=== PATIENT | male | born 1985 | race Caucasian/White ===

== ENCOUNTER 2016-12-25 16:48 | Inpatient (IN) | payer MEDICAID, OTHER ==
[~2016-12-25] VITALS: Ht 182.9 cm; Wt 59.3 kg
[~2016-12-25 16:48] MED LIST: AUGM875T PO; NAPR-576 PO
[2016-12-25 16:52] VITALS: BP 143/94; PULSE 119; RESP 22; TEMP 98.6; O2SAT 96
[2016-12-25] MEDS ORDERED: SODIUM CHLOR 0.9% 1000 ML INJ 1,000 ML IV SCH (16:57)
[2016-12-25] MEDS ORDERED: SODIUM CHLORIDE 0.9% FLUSH 10 ML FLUSH IVF PRN (17:00)
[2016-12-25 17:05] VITALS: RESP 22; O2SAT 96
--- NOTE | 2016-12-25 17:13 | PD ---
HPI . Left leg injury Chief Complaint: Injury Time Seen by Provider: 16:57 Travel History International Travel<30 days: No Contact w/Intl Traveler<30days: No Traveled to known affect area: No History of Present Illness HPI Patient presents by EMS following a left leg injury. Patient reports that he was running and tripped over a stump causing the injury to the leg. EMS was called. They found the patient with an obvious deformity of his left leg. They treated him in route with a splint and with fentanyl, 150 g total in divided dosages. Patient presents complaining with pain rated 8/10. Pain is exacerbated by movement. Pain has been somewhat relieved with the splint and fentanyl. He denies any other associated injuries. PFSH Past Medical History Cancer: No Cardiovascular Problems: No High Cholesterol: No Cerebrovascular Accident: No Diabetes: No Diminished Hearing: No Endocrine: No Genitourinary: Yes Immune Disorder: No Kidney Stones: Yes (HOSPITAL X3) Musculoskeletal: No Neurologic: No Psychiatric: No Reproductive: No Respiratory: No Immunizations Current: Yes Seizures: No Thyroid Disease: No Past Surgical History Other Surgery: No Social History Alcohol Use: Yes (WEEKENDS) Tobacco Use: Yes Substance Use: No (DENIES) Allergies-Medications (Allergen,Severity, Reaction): Coded Allergies: No Known Allergies (Unverified , 12/25/16) Reported Meds & Prescriptions Reported Meds & Active Scripts Active Augmentin 875 mg Tab (Amoxicillin & Pot Clavulanate 875 mg Tab) 875 Mg Tab 875 Mg PO Q12 10 Days Naproxen 500 Mg Tab 500 Mg PO Q12HR PRN Review of Systems Except as stated in HPI: all other systems reviewed are Neg Musculoskeletal: Positive: Limited ROM, Pain Physical Exam Narrative GENERAL: Awake and alert. Speech is a little slurred following the fentanyl. SKIN: Warm and dry. HEAD: Atraumatic. Normocephalic. EYES: Pupils equal and round. NECK: Trachea midline. CARDIOVASCULAR: Regular rate and rhythm. RESPIRATORY: No accessory muscle use. MUSCULOSKELETAL: Obvious deformity of the left lower extremity. The leg is angulated medially. He does have good movement and good pulses distally. NEUROLOGICAL: Awake and alert. No obvious cranial nerve deficits. Motor grossly within normal limits. Normal speech. PSYCHIATRIC: Appropriate mood and affect; insight and judgment normal. Data Data Last Documented VS Vital Signs Date Time Temp Pulse Resp B/P Pulse Ox O2 Delivery O2 Flow Rate FiO2 12/25/16 18:02 99 3.00 12/25/16 18:02 Nasal Cannula 12/25/16 17:05 22 12/25/16 16:52 98.6 119 143/94 Orders Basic Metabolic Panel (Bmp) (12/25/16 16:57) Complete Blood Count With Diff (12/25/16 16:57) Prothrombin Time / Inr (Pt) (12/25/16 16:57) Act Partial Throm Time (Ptt) (12/25/16 16:57) Type And Screen (12/25/16 16:57) Alcohol (Ethanol) (12/25/16 16:57) Urinalysis - C+S If Indicated (12/25/16 16:57) Chest, Single Ap (12/25/16 16:57) Iv Access Insert/Monitor (12/25/16 16:57) Ecg Monitoring (12/25/16 16:57) Oximetry (12/25/16 16:57) Splint Or Brace Apply/Monitor (12/25/16 16:57) Morphine Inj (Morphine Inj) (12/25/16 17:00) Sodium Chlor 0.9% 1000 Ml Inj (Ns 1000 M (12/25/16 16:57) Sodium Chloride 0.9% Flush (Ns Flush) (12/25/16 17:00) Femur (Ap & Lat/2vws) (12/25/16 17:00) Tibia/Fibula (Ap/Lat) (12/25/16 17:00) Propofol 200 Mg/20 Ml Inj (Diprivan 200 (12/25/16 17:15) Knee, Ltd (1 Or 2vws) (12/25/16 ) Splint Post Long Leg Ad Alum (12/25/16 ) Labs Laboratory Tests Test 12/25/16 12/25/16 17:08 17:15 Blood Type AB POSITIVE Antibody Screen NEGATIVE Blood Bank Comment White Blood Count 9.0 TH/MM3 Red Blood Count 4.51 MIL/MM3 Hemoglobin 14.2 GM/DL Hematocrit 41.6 % Mean Corpuscular Volume 92.4 FL Mean Corpuscular Hemoglobin 31.5 PG Mean Corpuscular Hemoglobin 34.1 % Concent Red Cell Distribution Width 13.3 % Platelet Count 330 TH/MM3 Mean Platelet Volume 7.4 FL Neutrophils (%) (Auto) 67.2 % Lymphocytes (%) (Auto) 25.3 % Monocytes (%) (Auto) 6.2 % Eosinophils (%) (Auto) 0.5 % Basophils (%) (Auto) 0.8 % Neutrophils # (Auto) 6.1 TH/MM3 Lymphocytes # (Auto) 2.3 TH/MM3 Monocytes # (Auto) 0.6 TH/MM3 Eosinophils # (Auto) 0.0 TH/MM3 Basophils # (Auto) 0.1 TH/MM3 CBC Comment DIFF FINAL Differential Comment Prothrombin Time 11.7 SEC Prothromb Time International 1.1 RATIO Ratio Activated Partial 25.9 SEC Thromboplast Time Sodium Level 141 MEQ/L Potassium Level 3.4 MEQ/L Chloride Level 101 MEQ/L Carbon Dioxide Level 26.1 MEQ/L Anion Gap 14 MEQ/L Blood Urea Nitrogen 13 MG/DL Creatinine 1.05 MG/DL Estimat Glomerular Filtration 84 ML/MIN Rate Random Glucose 233 MG/DL Calcium Level 9.1 MG/DL Ethyl Alcohol Level 239 MG/DL [facility] Medical Decision Making Medical Screen Exam Complete: Yes Emergency Medical Condition: Yes Differential Diagnosis Differential diagnosis of extremity trauma includes but is not limited to fracture, sprain or strain, dislocation, contusion Narrative Course Patient presents with an obvious fracture of the left leg. The x-ray tech agreed to do a cross table lateral of the knee. You can see that the proximal fibula is fractured. The distal femur is intact. The x-ray tech prefers to wait until after the patient is splinted or doing any further x- rays. The patient wants to wait until his gets here before he is sedated and splinted. CBC & BMP Diagram 12/25/16 17:15 Alcohol level is 239. X-ray to my interpretation show a proximal fibula and distal tibia fracture. They are now well aligned. Procedures Procedure Narrative After the risks and benefits were discussed the following procedure was performed: MODERATE SEDATION: The patient was placed on a cafeteria monitor and pulse oximetry. An ambu bag and suction was immediately available at bedside. The patient was monitored by the nurse and respiratory therapy. Oxygen saturation, heart rate and blood pressure were monitored. Procedural sedation was acheived using propofol . The patient was observed until awake and alert. Procedural Sedation time in attendance was 15 minutes. Physician Communication Physician Communication Dr. Marquis has been paged. Diagnosis Primary Impression: Fracture of left tibia and fibula Qualified Code: S82.202A - Fracture of left tibia and fibula, closed, initial encounter Admitting Information Admitting Physician Requests: Admit Condition: Stable Sujata Parker MD December 25, 2016 17:13
[2016-12-25] MEDS: MORPHINE SULFATE 4 MG/ML INJ IV PRN ×3 (17:14→20:45)
[2016-12-25] MEDS ORDERED: PROPOFOL 200 MG/20 ML AMP IV ONE (17:15)
[2016-12-25 17:31] LABS: AUTOMATED NEUTROPHIL # 6.1 TH/MM3 (1.8-7.7); BASOPHIL # 0.1 TH/MM3 (0-0.2); BASOPHIL % 0.8 % (0.0-2.0); EOSINOPHIL % 0.5 % (0.0-4.0); HEMATOCRIT 41.6 % (39.0-51.0); HEMO FLAGS DIFF FINAL; LYMPH % 25.3 % (9.0-44.0); LYMPHOCYTE # 2.3 TH/MM3 (1.0-4.8); MEAN CELL VOLUME 92.4 FL (80.0-100.0); MEAN CORPUSCULAR HEMOGLOBIN 31.5 PG (27.0-34.0); MEAN CORPUSCULAR HGB CONC 34.1 % (32.0-36.0); MONO % 6.2 % (0.0-8.0); NEUT % 67.2 % (16.0-70.0); PLATELET COUNT 330 TH/MM3 (150-450); RED BLOOD COUNT 4.51 MIL/MM3 (4.50-5.90); RED CELL DISTRIBUTION WIDTH 13.3 % (11.6-17.2)
[2016-12-25 17:46] LABS: APTT (PATIENT) 25.9 SEC (24.3-30.1); INTERNATIONAL NORMALIZED RATIO 1.1 RATIO; PROTHROMBIN TIME - PATIENT 11.7 SEC (9.8-11.6)
--- NOTE | 2016-12-25 17:49 | RADRPT ---
EXAM DATE/TIME: 12/25/2016 17:23 [facility] COMPARISON: No previous studies available for comparison. 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 Complete exams to follow. MEDICAL HISTORY : None. SURGICAL HISTORY : None. ENCOUNTER: Initial ACUITY: 1 day PAIN SCORE: 10/10 LOCATION: Left lower leg FINDINGS: A single lateral view of the left knee is submitted for review. There is no knee joint effusion. Th ere is an acute displaced fracture involving the left proximal fibula. CONCLUSION: Acute displaced fracture involving the left proximal fibula. Devonte Ayala MD on December 25, 2016 at 17:45 Board Certified Radiologist. This report was verified electronically.
[2016-12-25 17:53] LABS: BICARBONATE 26.1 MEQ/L (21.0-32.0); POTASSIUM 3.4 MEQ/L (3.5-5.1)
[2016-12-25 18:02] VITALS: O2SAT 99
--- NOTE | 2016-12-25 18:46 | RADRPT ---
EXAM DATE/TIME: 12/25/2016 17:59 [facility] COMPARISON: No previous studies available for comparison. INDICATIONS : Distal left leg pain post fall. MEDICAL HISTORY : None. SURGICAL HISTORY : None. ENCOUNTER: Initial ACUITY: 1 day PAIN SCORE: 10/10 LOCATION: Left leg FINDINGS: The left femur is intact without fracture or dislocation. There is an acute displaced fracture invol ving the left proximal fibula. CONCLUSION: 1. Acute displaced fracture involving the left proximal fibula. Devonte Ayala MD on December 25, 2016 at 18:40 Board Certified Radiologist. This report was verified electronically.
--- NOTE | 2016-12-25 18:51 | RADRPT ---
EXAM DATE/TIME: 12/25/2016 18:22 [facility] COMPARISON: No previous studies available for comparison. INDICATIONS : Shortness of breath, fall. MEDICAL HISTORY : None. SURGICAL HISTORY : None. ENCOUNTER: Initial ACUITY: 1 day PAIN SCORE: 0/10 LOCATION: Bilateral chest FINDINGS: There is a poor inspiration. There is crowding of the pulmonary vasculature. The heart and mediasti nal structures are unremarkable. Mild scoliosis of the thoracolumbar spine is noted. CONCLUSION: 1. Poor inspiratory result resulting in crowding of the pulmonary vasculature. 2. Mild scoliosis of the thoracolumbar spine. Devonte Ayala MD on December 25, 2016 at 18:45 Board Certified Radiologist. This report was verified electronically.
--- NOTE | 2016-12-25 18:54 | RADRPT ---
EXAM DATE/TIME: 12/25/2016 18:15 [facility] COMPARISON: No previous studies available for comparison. INDICATIONS : Pain and deformity to the left tibia post fall. MEDICAL HISTORY : None. SURGICAL HISTORY : None. ENCOUNTER: Initial ACUITY: 1 day PAIN SCORE: 10/10 LOCATION: Left leg FINDINGS: There are acute displaced fractures involving the left distal tibial shaft and the left proximal fibu lar shaft. CONCLUSION: 1. Acute displaced fractures involving the left distal tibial shaft and the left proximal fibular sh aft. Devonte Ayala MD on December 25, 2016 at 18:50 Board Certified Radiologist. This report was verified electronically.
[2016-12-25 19:00] VITALS: BP 143/83; PULSE 103; RESP 18; TEMP 97.6; O2SAT 96
[2016-12-25 19:20] VITALS: BP 143/86; PULSE 109; RESP 18; O2SAT 95
--- NOTE | 2016-12-25 19:57 | PD ---
Physical Exam Date Seen by Provider: December 25, 2016 Time Seen by Provider: 19:56 Narrative 31-year-old male that presents to the ED for evaluation of left leg injury. I was asked by my attending to speak with Dr. Marquis as well as admit the patient for surgery. Please refer to my attendings note. Data Data Last Documented VS Vital Signs Date Time Temp Pulse Resp B/P Pulse Ox O2 Delivery O2 Flow Rate FiO2 12/25/16 19:20 109 18 143/86 95 Room Air 12/25/16 18:02 3.00 12/25/16 16:52 98.6 Orders Basic Metabolic Panel (Bmp) (12/25/16 16:57) Complete Blood Count With Diff (12/25/16 16:57) Prothrombin Time / Inr (Pt) (12/25/16 16:57) Act Partial Throm Time (Ptt) (12/25/16 16:57) Type And Screen (12/25/16 16:57) Alcohol (Ethanol) (12/25/16 16:57) Urinalysis - C+S If Indicated (12/25/16 16:57) Chest, Single Ap (12/25/16 16:57) Iv Access Insert/Monitor (12/25/16 16:57) Ecg Monitoring (12/25/16 16:57) Oximetry (12/25/16 16:57) Splint Or Brace Apply/Monitor (12/25/16 16:57) Morphine Inj (Morphine Inj) (12/25/16 17:00) Sodium Chlor 0.9% 1000 Ml Inj (Ns 1000 M (12/25/16 16:57) Sodium Chloride 0.9% Flush (Ns Flush) (12/25/16 17:00) Femur (Ap & Lat/2vws) (12/25/16 17:00) Tibia/Fibula (Ap/Lat) (12/25/16 17:00) Propofol 200 Mg/20 Ml Inj (Diprivan 200 (12/25/16 17:15) Knee, Ltd (1 Or 2vws) (12/25/16 ) Splint Post Long Leg Ad Alum (12/25/16 ) Admit Order (Ed Use Only) (12/25/16 19:54) Labs Laboratory Tests Test 12/25/16 12/25/16 17:08 17:15 Blood Type AB POSITIVE Antibody Screen NEGATIVE Blood Bank Comment White Blood Count 9.0 TH/MM3 Red Blood Count 4.51 MIL/MM3 Hemoglobin 14.2 GM/DL Hematocrit 41.6 % Mean Corpuscular Volume 92.4 FL Mean Corpuscular Hemoglobin 31.5 PG Mean Corpuscular Hemoglobin 34.1 % Concent Red Cell Distribution Width 13.3 % Platelet Count 330 TH/MM3 Mean Platelet Volume 7.4 FL Neutrophils (%) (Auto) 67.2 % Lymphocytes (%) (Auto) 25.3 % Monocytes (%) (Auto) 6.2 % Eosinophils (%) (Auto) 0.5 % Basophils (%) (Auto) 0.8 % Neutrophils # (Auto) 6.1 TH/MM3 Lymphocytes # (Auto) 2.3 TH/MM3 Monocytes # (Auto) 0.6 TH/MM3 Eosinophils # (Auto) 0.0 TH/MM3 Basophils # (Auto) 0.1 TH/MM3 CBC Comment DIFF FINAL Differential Comment Prothrombin Time 11.7 SEC Prothromb Time International 1.1 RATIO Ratio Activated Partial 25.9 SEC Thromboplast Time Sodium Level 141 MEQ/L Potassium Level 3.4 MEQ/L Chloride Level 101 MEQ/L Carbon Dioxide Level 26.1 MEQ/L Anion Gap 14 MEQ/L Blood Urea Nitrogen 13 MG/DL Creatinine 1.05 MG/DL Estimat Glomerular Filtration 84 ML/MIN Rate Random Glucose 233 MG/DL Calcium Level 9.1 MG/DL Ethyl Alcohol Level 239 MG/DL [facility] Medical Record Reviewed: Yes Supervised Visit with JOSE: No Differential Diagnosis Fracture versus alcohol intoxication versus normal exam Narrative Course 31-year-old male that presents to the ED for evaluation of left leg injury. Please refer to my attendings note. I spoke with Dr. Marquis over the phone who recommends admission to medicine and nothing by mouth. Likely surgery. Case was discussed with Dr. Madsen who agreed to the admission. Patient was admitted. Diagnosis Primary Impression: Fracture of left tibia and fibula Qualified Code: S82.202A - Fracture of left tibia and fibula, closed, initial encounter Admitting Information Admitting Physician Requests: Observation Condition: Stable Judd Ying December 25, 2016 19:57
[2016-12-25] MEDS ORDERED: ACETAMINOPHEN 325 MG TAB PO PRN (20:00)
[2016-12-25] MEDS ORDERED: LACTULOSE SYRUP 20 GM/30 ML CUP PO PRN (20:00)
[2016-12-25] MEDS ORDERED: SENNOSIDES 8.6 MG TAB PO PRN (20:00)
[2016-12-25] MEDS ORDERED: BISACODYL 10 MG SUPP RECTAL PRN (20:00)
[2016-12-25] MEDS ORDERED: ACETAMINOPHEN/HYDROcodone 325 MG/5 MG TAB PO PRN (20:00)
[2016-12-25] MEDS ORDERED: ONDANSETRON HCL 4 MG/2 ML VIAL IVP PRN (20:00)
[2016-12-25] MEDS ORDERED: MAGNESIUM HYDROXIDE SUSP 30 ML CUP PO PRN (20:00)
[2016-12-25] MEDS ORDERED: SODIUM CHLORIDE 0.9% FLUSH 10 ML FLUSH IV FLUSH PRN (20:00)
--- NOTE | 2016-12-25 20:06 | HHI.HP ---
[facility] Service [facility] Primary Care Physician Unknown Admission Diagnosis left tibia fibular fracture, alcohol intoxication Diagnoses: (1) Fracture of left tibia and fibula Diagnosis: Principal (2) Hypokalemia Diagnosis: Principal (3) Dehydration Diagnosis: Principal (4) Hyperglycemia Diagnosis: Principal (5) Alcohol intoxication Diagnosis: Principal (6) Tobacco abuse Diagnosis: Principal Travel History International Travel<30 Days: No Contact w/Intl Traveler <30 Da: No Traveled to Known Affected Are: No History of Present Illness This is a 31-year-old male with no significant PMH who was brought to the ER by with injury to left leg after fall. Patient was apparently running and suddenly tripped over a tree stump, landed on left leg with immediate pain. Unable to bare weight. Upon EMS arrival, patient noted to have obvious deformity of left lower extremity, s/p splint. No LOC or head trauma reported. On arrival, BP 143/94, HR 119, O2 sat 96% on RA, Afebrile. CBC unremarkable. K+ 3.4. GFR 84. BS 233. INR 1.1. CXR with no acute findings, poor inspiratory effort. Knee X-ray acute displaced fracture involving left proximal fibula. Tib-Fib X-ray acute displaced fractures involving left distal tibial shaft and left proximal fibular shaft. Femur X-ray acute displaced fracture involving left proximal fibula. Dr. Marquis consulted by ER physician, plan is for surgical intervention by Dr. Castillo in a.m. Review of Systems Except as stated in HPI: all other systems reviewed are Neg ROS: 14 point review of systems otherwise negative. Past Family Social History Past Medical History PMH: None Past Surgical History PAST SURGICAL HISTORY: None Allergies: Coded Allergies: No Known Allergies (Unverified , 12/25/16) Family History PAST FAMILY HISTORY: Reviewed. No h/o DM or CAD Social History PAST SOCIAL HISTORY: Occasional alcohol. Positive for tobacco. Negative for drugs. Physical Exam Vital Signs Vital Signs Date Time Temp Pulse Resp B/P Pulse Ox O2 Delivery O2 Flow Rate FiO2 12/25/16 19:20 109 18 143/86 95 Room Air 12/25/16 18:02 99 3.00 12/25/16 18:02 99 Nasal Cannula 3.00 12/25/16 17:05 22 96 12/25/16 16:52 98.6 119 22 143/94 96 Physical Exam PE: GENERAL: Middle-aged white male in no acute distress. HEENT: PERRLA, EOMI. No scleral icterus or conjunctival pallor. No lid lag or facial droop. CARDIOVASCULAR: Regular rate and rhythm. No obvious murmurs to auscultation. No chest tenderness to palpation. RESPIRATORY: No obvious rhonchi or wheezing. Clear to auscultation. Breath sounds equal bilaterally. GASTROINTESTINAL: Abdomen soft, non-tender, nondistended. BS normal. MUSCULOSKELETAL: LLE w/ splint, decreased ROM due to injury. Pulses intact. NEUROLOGICAL: Awake, alert and oriented x4. No focal neurologic deficits. Moving both upper and lower extremities spontaneously. Laboratory Laboratory Tests Test 12/25/16 12/25/16 17:08 17:15 Blood Type AB POSITIVE Antibody Screen NEGATIVE Blood Bank Comment White Blood Count 9.0 Red Blood Count 4.51 Hemoglobin 14.2 Hematocrit 41.6 Mean Corpuscular Volume 92.4 Mean Corpuscular Hemoglobin 31.5 Mean Corpuscular Hemoglobin 34.1 Concent Red Cell Distribution Width 13.3 Platelet Count 330 Mean Platelet Volume 7.4 Neutrophils (%) (Auto) 67.2 Lymphocytes (%) (Auto) 25.3 Monocytes (%) (Auto) 6.2 Eosinophils (%) (Auto) 0.5 Basophils (%) (Auto) 0.8 Neutrophils # (Auto) 6.1 Lymphocytes # (Auto) 2.3 Monocytes # (Auto) 0.6 Eosinophils # (Auto) 0.0 Basophils # (Auto) 0.1 CBC Comment DIFF FINAL Differential Comment Prothrombin Time 11.7 Prothromb Time International 1.1 Ratio Activated Partial 25.9 Thromboplast Time Sodium Level 141 Potassium Level 3.4 Chloride Level 101 Carbon Dioxide Level 26.1 Anion Gap 14 Blood Urea Nitrogen 13 Creatinine 1.05 Estimat Glomerular Filtration 84 Rate Random Glucose 233 Calcium Level 9.1 Ethyl Alcohol Level 239 Result Diagram: 12/25/16 1715 12/25/161714 Assessment and Plan Problem List: (1) Fracture of left tibia and fibula ICD Code: S82. Status: Acute (2) Alcohol intoxication ICD Code: F10.929 Status: Acute (3) Hypokalemia ICD Code: E87.6 Status: Acute (4) Hyperglycemia ICD Code: R73.9 Status: Acute (5) Dehydration ICD Code: E86.0 Status: Acute (6) Tobacco abuse ICD Code: Z72.0 Status: Acute Assessment and Plan A/P: 1. Left Tib-Fib Fx: s/p mechanical trip and fall over stump while running, no LOC or head trauma reported. Tib-fib X-ray with acute displaced fractures involving left distal tibial shaft and left proximal fibular shaft, images reviewed by me. Dr. Marquis consulted by ER physician, plan is for surgical intervention in a.m. by Dr. Castillo. Keep NPO, IVF, analgesics/antiemetics as needed. 2. Alcohol Intoxication: Acute intoxication. Alcohol 239. No h/o alcohol abuse. IVF for hydration. 3. Hypokalemia: Mild. K+ 3.4. Will replace and recheck in am. 4. Hyperglycemia: No reported h/o DM. BS 233. Check Hgb A1c, Sliding scale w / Accu-Cheks. 5. Tobacco Abuse: Pt counselled. NicoDerm prn if needed. 6. DVT Prophylaxis: Anticoagulation post op per Ortho. 7. Social work for d/c planning as needed. 8. Case discussed w/ ER physician at length. Physician Certification 2 Midnight Certification Type: Admission for Inpatient Services Order for Inpatient Services The services are ordered in accordance with Medicare regulations or non- Medicare payer requirements, as applicable. In the case of services not specified as inpatient-only, they are appropriately provided as inpatient services in accordance with the 2-midnight benchmark. Estimated LOS (days): 2 days is the estimated time the patient will need to remain in the hospital, assuming treatment plan goals are met and no additional complications. Post-Hospital Plan: Not yet determined Problem Qualifiers (1) Fracture of left tibia and fibula: Qualified Code: S82.A - Fracture of left tibia and fibula, closed, initial encounter Tara Madsen MD December 25, 2016 20:06
[2016-12-25] MEDS ORDERED: DEXTROSE 50% IN WATER 50 ML VIAL(D50) IV PRN (20:30)
[2016-12-25] MEDS ORDERED: POTASSIUM CHLORIDE 20 MEQ CONTROLLED RELEASE TAB PO ONE (20:30)
[2016-12-25] MEDS ORDERED: GLUCAGON 1 MG/ML VIAL OTHER PRN (20:30)
[2016-12-25] MEDS: INSULIN ASPART SUPPLEMENTAL SCALE SQ SCH (21:00)
[2016-12-25] MEDS: SODIUM CHLORIDE 0.9% FLUSH 10 ML FLUSH IV FLUSH SCH (21:23)
[2016-12-25] MEDS: SODIUM CHLOR 0.9% 1000 ML INJ 1,000 ML IV SCH (21:24)
[2016-12-25] MEDS: DOCUSATE SODIUM 50 MG/SENNA 8.6 MG TAB PO SCH (21:24)
--- NOTE | 2016-12-25 23:27 | PD.CONS ---
cc: Willie Marquis MD HPI Service Orthopedic Surgeons Consult Requested By ED staff Reason for Consult Left tibia and fibula fractures Primary Care Physician Unknown Admission Diagnosis left tibia fibular fracture, alcohol intoxication Diagnoses: (1) Fracture of left tibia and fibula (2) Alcohol intoxication (3) Hypokalemia (4) Hyperglycemia (5) Dehydration (6) Tobacco abuse Chief Complaint: Left leg pain History of Present Illness This is a 31-year-old male with no significant PMH who was brought to the ER by with injury to left leg after fall. Patient was apparently running and suddenly tripped over a tree stump, landed on left leg with immediate pain. Unable to bare weight. Upon EMS arrival, patient noted to have obvious deformity of left lower extremity, s/p splint. No LOC or head trauma reported. On arrival, BP 143/94, HR 119, O2 sat 96% on RA, Afebrile. CBC unremarkable. K+ 3.4. GFR 84. BS 233. INR 1.1. CXR with no acute findings, poor inspiratory effort. Knee X-ray acute displaced fracture involving left proximal fibula. Tib-Fib X-ray acute displaced fractures involving left distal tibial shaft and left proximal fibular shaft. Femur X-ray acute displaced fracture involving left proximal fibula. The patient denies other extremity injury. His pain currently is well-controlled. Review of Systems Reviewed and well outlined in the medical record Past Family Social History Past Medical History PMH: None Past Surgical History PAST SURGICAL HISTORY: None Allergies: Coded Allergies: No Known Allergies (Unverified , 12/25/16) Active Ordered Medications Current Medications Medications (Trade) Dose Ordered Sig/Luke Route Start Time Stop Time Status Last Admin (NS 1000 ml Inj) 1,000 ml @ 100 mls/hr Q10H IV 12/25/16 20:00 12/25/16 21:24 (NS Flush) 2 ml UNSCH PRN IV FLUSH 12/25/16 20:00 (NS Flush) 2 ml BID IV FLUSH 12/25/16 21:00 12/25/16 21:23 (Zofran Inj) 4 mg Q6H PRN IVP 12/25/16 20:00 12/25/16 20:45 (Tylenol) 650 mg Q6H PRN PO 12/25/16 20:00 (Barrington 5-325 Mg) 1 tab Q4H PRN PO 12/25/16 20:00 (Morphine Inj) 2 mg Q3H PRN IV 12/25/16 20:00 12/25/16 20:45 (Cindy-Colace) 1 tab BID PO 12/25/16 21:00 12/25/16 21:24 (Milk Of Magnesia Liq) 30 ml Q12H PRN PO 12/25/16 20:00 (Senokot) 17.2 mg Q12H PRN PO 12/25/16 20:00 (Dulcolax Supp) 10 mg DAILY PRN RECTAL 12/25/16 20:00 (Lactulose Liq) 30 ml DAILY PRN PO 12/25/16 20:00 (D50w (Vial) Inj) 50 ml UNSCH PRN IV 12/25/16 20:30 (Glucagon Inj) 1 mg UNSCH PRN OTHER 12/25/16 20:30 Reported Meds & Active Scripts Active Augmentin 875 mg Tab (Amoxicillin & Pot Clavulanate 875 mg Tab) 875 Mg Tab 875 Mg PO Q12 10 Days Naproxen 500 Mg Tab 500 Mg PO Q12HR PRN Family History PAST FAMILY HISTORY: Reviewed. No h/o DM or CAD Social History PAST SOCIAL HISTORY: Occasional alcohol. Positive for tobacco. Negative for drugs. Physical Exam Vital Signs Vital Signs Date Time Temp Pulse Resp B/P Pulse Ox O2 Delivery O2 Flow Rate FiO2 12/25/16 19:20 109 18 143/86 95 Room Air 12/25/16 19:00 97.6 103 18 143/83 96 12/25/16 18:02 99 3.00 12/25/16 18:02 99 Nasal Cannula 3.00 12/25/16 17:05 22 96 12/25/16 16:52 98.6 119 22 143/94 96 Physical Exam The left lower extremity is splinted. He is able to move his toes freely. He has no pain with passive range of motion. He has good capillary refill and sensation. There are no other localizing signs of extremity injury. Laboratory Laboratory Tests Test 12/25/16 12/25/16 17:08 17:15 Blood Type AB POSITIVE Antibody Screen NEGATIVE Blood Bank Comment White Blood Count 9.0 Red Blood Count 4.51 Hemoglobin 14.2 Hematocrit 41.6 Mean Corpuscular Volume 92.4 Mean Corpuscular Hemoglobin 31.5 Mean Corpuscular Hemoglobin 34.1 Concent Red Cell Distribution Width 13.3 Platelet Count 330 Mean Platelet Volume 7.4 Neutrophils (%) (Auto) 67.2 Lymphocytes (%) (Auto) 25.3 Monocytes (%) (Auto) 6.2 Eosinophils (%) (Auto) 0.5 Basophils (%) (Auto) 0.8 Neutrophils # (Auto) 6.1 Lymphocytes # (Auto) 2.3 Monocytes # (Auto) 0.6 Eosinophils # (Auto) 0.0 Basophils # (Auto) 0.1 CBC Comment DIFF FINAL Differential Comment Prothrombin Time 11.7 Prothromb Time International 1.1 Ratio Activated Partial 25.9 Thromboplast Time Sodium Level 141 Potassium Level 3.4 Chloride Level 101 Carbon Dioxide Level 26.1 Anion Gap 14 Blood Urea Nitrogen 13 Creatinine 1.05 Estimat Glomerular Filtration 84 Rate Random Glucose 233 Calcium Level 9.1 Ethyl Alcohol Level 239 Result Diagram: 12/25/16 1715 12/25/16 1715 Imaging Last 24 hours Impressions Tibia/Fibula X-Ray 12/25/16 1700 Signed Impressions: Service Date/Time: Sunday, December 25, 2016 18:15 - CONCLUSION: 1. Acute displaced fractures involving the left distal tibial shaft and the left proximal fibular shaft. Devonte Ayala MD Femur X-Ray 12/25/16 1700 Signed Impressions: Service Date/Time: Sunday, December 25, 2016 17:59 - CONCLUSION: 1. Acute displaced fracture involving the left proximal fibula. Devonte Ayala MD Chest X-Ray 12/25/16 1657 Signed Impressions: Service Date/Time: Sunday, December 25, 2016 18:22 - CONCLUSION: 1. Poor inspiratory result resulting in crowding of the pulmonary vasculature. 2. Mild scoliosis of the thoracolumbar spine. Devonte Ayala MD Knee X-Ray 12/25/16 0000 Signed Impressions: Service Date/Time: Sunday, December 25, 2016 17:23 - CONCLUSION: Acute displaced fracture involving the left proximal fibula. Devonte Ayala MD Assessment & Plan Problem List: (1) Fracture of left tibia and fibula (2) Tobacco abuse (3) Alcohol intoxication Assessment and Plan The findings were discussed the patient and family members who were in the room with him. The options for treatment both operative and nonoperative were discussed. This will include closed reduction with cast immobilization versus open reduction internal fixation. In addition the different options for internal fixation were discussed. The risks and benefits of each were discussed and at the time of this dictation, the patient is having a hard time deciding but is leaning toward closed reduction and cast immobilization understanding the prolonged need for immobilization as well as the potential for displacement despite immobilization and the time required for limited weightbearing and immobilization with associated issues. The surgical options including intramedullary cinthya fixation versus plate fixation as well as the risks and benefits of same were discussed in detail. The patient will be nothing by mouth after midnight with the decision expected in the morning prior to proceeding. The patient and his family acknowledged full understanding of the nature of the problem and the options for treatment. Willie Marquis MD December 25, 2016 23:27
[2016-12-26] VITALS (8 sets, daily range): BP systolic 118–144; BP diastolic 74–89; PULSE 74–101; RESP 16–20; TEMP 95.9–98.9; O2SAT 95–98
[2016-12-26] MEDS: MORPHINE SULFATE 4 MG/ML INJ IV PRN ×4 (00:25→09:22)
[2016-12-26] MEDS: INSULIN ASPART SUPPLEMENTAL SCALE SQ SCH ×4 (06:45→20:54)
[2016-12-26] MEDS: SODIUM CHLORIDE 0.9% FLUSH 10 ML FLUSH IV FLUSH SCH ×2 (08:27→20:46)
[2016-12-26] MEDS: DOCUSATE SODIUM 50 MG/SENNA 8.6 MG TAB PO SCH ×2 (08:27→20:46)
--- NOTE | 2016-12-26 09:03 | PD.ORT.PN ---
Subjective Pain Scale: 4 Subjective Remarks The patient is awake alert. He has discussed the options for treatment with his family and has decided to proceed with surgical management and internal fixation. He has been nothing by mouth and will proceed today. Objective Vitals Vital Signs Date Time Temp Pulse Resp B/P Pulse Ox O2 Delivery O2 Flow Rate FiO2 12/26/16 07:38 97.0 74 18 136/85 98 12/26/16 04:00 98.9 101 16 144/76 95 12/25/16 19:20 109 18 143/86 95 Room Air 12/25/16 19:00 97.6 103 18 143/83 96 12/25/16 18:02 99 3.00 12/25/16 18:02 99 Nasal Cannula 3.00 12/25/16 17:05 22 96 12/25/16 16:52 98.6 119 22 143/94 96 I/O 12/25/16 12/25/16 12/25/16 12/26/16 12/26/16 12/26/16 07:00 15:00 23:00 07:00 15:00 23:00 Intake Total 870 ml Balance 870 ml Intake Oral 150 ml IV Total 720 ml Result Diagram: 12/25/16 1715 12/25/16 1715 Other Results Laboratory Tests Test 12/25/16 17:15 Prothrombin Time 11.7 SEC (9.8-11.6) Prothromb Time International 1.1 RATIO Ratio Imaging Last 24 hours Impressions Tibia/Fibula X-Ray 12/25/16 1700 Signed Impressions: Service Date/Time: Sunday, December 25, 2016 18:15 - CONCLUSION: 1. Acute displaced fractures involving the left distal tibial shaft and the left proximal fibular shaft. Devonte Ayala MD Femur X-Ray 12/25/16 1700 Signed Impressions: Service Date/Time: Sunday, December 25, 2016 17:59 - CONCLUSION: 1. Acute displaced fracture involving the left proximal fibula. Devonte Ayala MD Chest X-Ray 12/25/16 1657 Signed Impressions: Service Date/Time: Sunday, December 25, 2016 18:22 - CONCLUSION: 1. Poor inspiratory result resulting in crowding of the pulmonary vasculature. 2. Mild scoliosis of the thoracolumbar spine. Devonte Ayala MD Objective Remarks The splint is intact. He moves his toes freely and has good capillary refill and sensation. Assessment & Plan Problem List: (1) Fracture of left tibia and fibula (2) Tobacco abuse (3) Alcohol intoxication Assessment and Plan The patient has opted for internal fixation of his tibia fracture. This most likely will include intramedullary cinthya fixation. The nature of the procedure, the risks, expected benefits, as well as the postoperative expectations were again discussed. The patient acknowledges full understanding and consents to it. Willie Marquis MD December 26, 2016 09:03
[2016-12-26] MEDS: SODIUM CHLOR 0.9% 1000 ML INJ 1,000 ML IV SCH ×2 (09:28→15:51)
[2016-12-26 09:50] LABS: AUTOMATED NEUTROPHIL # 3.6 TH/MM3 (1.8-7.7); BASOPHIL # 0.1 TH/MM3 (0-0.2); BASOPHIL % 0.8 % (0.0-2.0); EOSINOPHIL # 0.1 TH/MM3 (0-0.4); EOSINOPHIL % 1.6 % (0.0-4.0); HEMATOCRIT 38.3 % (39.0-51.0); HEMO FLAGS DIFF FINAL; LYMPHOCYTE # 1.9 TH/MM3 (1.0-4.8); MEAN CELL VOLUME 93.3 FL (80.0-100.0); MEAN CORPUSCULAR HGB CONC 33.2 % (32.0-36.0); MONO % 12.8 % (0.0-8.0); NEUT % 54.8 % (16.0-70.0); PLATELET COUNT 233 TH/MM3 (150-450); RED CELL DISTRIBUTION WIDTH 13.4 % (11.6-17.2); WHITE BLOOD COUNT 6.5 TH/MM3 (4.0-11.0)
--- NOTE | 2016-12-26 10:08 | HHI.PR ---
Subjective Remarks Follow-up left tibial fracture 12/26/16-patient seen and examined and is currently nothing by mouth. Denies any significant left knee pain. Objective Vitals Vital Signs Date Time Temp Pulse Resp B/P Pulse Ox O2 Delivery O2 Flow Rate FiO2 12/26/16 07:38 97.0 74 18 136/85 98 12/26/16 04:00 98.9 101 16 144/76 95 12/25/16 19:20 109 18 143/86 95 Room Air 12/25/16 19:00 97.6 103 18 143/83 96 12/25/16 18:02 99 3.00 12/25/16 18:02 99 Nasal Cannula 3.00 12/25/16 17:05 22 96 12/25/16 16:52 98.6 119 22 143/94 96 I/O 12/25/16 12/25/16 12/25/16 12/26/16 12/26/16 12/26/16 07:00 15:00 23:00 07:00 15:00 23:00 Intake Total 870 ml Output Total 750 ml Balance 870 ml -750 ml Intake Oral 150 ml IV Total 720 ml Output Urine Total 750 ml Result Diagram: 12/26/16 0904 12/25/16 1715 Imaging Last Impressions Tibia/Fibula X-Ray 12/25/16 1700 Signed Impressions: Service Date/Time: Sunday, December 25, 2016 18:15 - CONCLUSION: 1. Acute displaced fractures involving the left distal tibial shaft and the left proximal fibular shaft. Devonte Ayala MD Femur X-Ray 12/25/16 1700 Signed Impressions: Service Date/Time: Sunday, December 25, 2016 17:59 - CONCLUSION: 1. Acute displaced fracture involving the left proximal fibula. Devonte Ayala MD Chest X-Ray 12/25/16 1657 Signed Impressions: Service Date/Time: Sunday, December 25, 2016 18:22 - CONCLUSION: 1. Poor inspiratory result resulting in crowding of the pulmonary vasculature. 2. Mild scoliosis of the thoracolumbar spine. Devonte Ayala MD Knee X-Ray 12/25/16 0000 Signed Impressions: Service Date/Time: Sunday, December 25, 2016 17:23 - CONCLUSION: Acute displaced fracture involving the left proximal fibula. Devonte Ayala MD Objective Remarks GENERAL: NAD SKIN: Warm and dry. HEAD: Normocephalic. EYES: No scleral icterus. No injection or drainage. NECK: Supple, trachea midline. No JVD or lymphadenopathy. CARDIOVASCULAR: Regular rate and rhythm without murmurs, gallops, or rubs. RESPIRATORY: Breath sounds equal bilaterally. No accessory muscle use. GASTROINTESTINAL: Abdomen soft, non-tender, nondistended. MUSCULOSKELETAL: No cyanosis, or edema. Left knee cast-neurovascular intact BACK: Nontender without obvious deformity. No CVA tenderness. A/P Problem List: (1) Fracture of left tibia and fibula ICD Code: S82.A Status: Acute (2) Alcohol intoxication ICD Code: F10.929 Status: Resolved (3) Hypokalemia ICD Code: E87.6 Status: Acute (4) Hyperglycemia ICD Code: R73.9 Status: Acute (5) Dehydration ICD Code: E86.0 Status: Resolved (6) Tobacco abuse ICD Code: Z72.0 Status: Chronic Assessment and Plan 31-year-old man with 1. Left Tib-Fib Fx: s/p mechanical trip and fall . Tib-fib X-ray with acute displaced fractures involving left distal tibial shaft and left proximal fibular shaft. Dr. Marquis consulted by ER physician, plan is for surgical intervention today 12/26/16. Keep NPO, IVF, parenteral pain medication, analgesics/antiemetics as needed. 2. Alcohol Intoxication: Acute intoxication. Alcohol 239. No h/o alcohol abuse. IVF for hydration. 3. Hypokalemia: Mild. K+ 3.4. BMP pending status post replacement 4. Hyperglycemia: No reported h/o DM. BS 233. Hgb A1c pending, Sliding scale w/ Accu-Cheks. 5. Tobacco Abuse: Pt counselled. NicoDerm prn if needed. 6. DVT Prophylaxis: Anticoagulation post op per Ortho. Problem Qualifiers (1) Fracture of left tibia and fibula: Qualified Code: S82.A - Fracture of left tibia and fibula, closed, initial encounter Efraín Moreno MD December 26, 2016 10:08
[2016-12-26 10:17] LABS: ALKALINE PHOSPHATASE 87 U/L (45-117); ALT (GPT) 224 U/L (12-78); ANION GAP 6 MEQ/L (5-15); AST (GOT) 125 U/L (15-37); BICARBONATE 28.7 MEQ/L (21.0-32.0); BLOOD UREA NITROGEN 13 MG/DL (7-18); CHLORIDE 105 MEQ/L (98-107); GLOMERULAR FILTRATION RATE 104 ML/MIN (>89); POTASSIUM 3.9 MEQ/L (3.5-5.1); SODIUM (NA) 140 MEQ/L (136-145); TOTAL BILIRUBIN ADULT 0.9 MG/DL (0.2-1.0)
[2016-12-26] MEDS ORDERED: MIDAZOLAM HCL 2 MG/2 ML VIAL ONE (11:27)
[2016-12-26] MEDS ORDERED: ACETAMINOPHEN 1000 MG/100 ML VIAL IV ONE (11:27)
[2016-12-26] MEDS ORDERED: HYDROmorphone HCL PF 2 MG/ML VIAL ONE (11:27)
[2016-12-26] MEDS ORDERED: fentaNYL CITRATE 250 MCG/5 ML AMP ONE (11:27)
[2016-12-26 11:36] LABS: BLOOD, URINE NEG (NEG); GLUCOSE,URINE 70 mg/dL (NEG); KETONE, URINE NEG (NEG); MUCUS URINE FEW /lpf (OCC); NITRITE,URINE NEG (NEG); PH, URINE 5.5 (5.0-8.5); URINE COLOR YELLOW (YELLW/STRAW)
[2016-12-26 11:37] LABS: COMMENT (UR) CULT NOT INDICATED; CULTURE IF INDICATED CULT NOT INDICATED
[2016-12-26] MEDS ORDERED: ceFAZolin INJ 1,000 MG VIAL IV ONE (11:50)
[2016-12-26] MEDS ORDERED: LACTATED RINGER'S 1000 ML INJ 1,000 ML IV ONE (12:00)
[2016-12-26] MEDS ORDERED: PROPOFOL 200 MG/20 ML AMP IV ONE (12:00)
[2016-12-26] MEDS ORDERED: NEOSTIGMINE 3 MG/3 ML SYR IV ONE (12:00)
[2016-12-26] MEDS ORDERED: ONDANSETRON HCL 4 MG/2 ML VIAL IV PUSH ONE (12:00)
[2016-12-26] MEDS ORDERED: GENTAMICIN SULFATE 80 MG/2 ML VIAL IRRIGATION ONE (12:19)
--- NOTE | 2016-12-26 13:24 | RADRPT ---
EXAM DATE/TIME: 12/26/2016 12:43 [facility] COMPARISON: TIBIA/FIBULA LEFT (AP/LAT), December 25, 2016, 18:15. INDICATIONS : Post-op intramedulary cinthya for left tibia fracture. MEDICAL HISTORY : None. SURGICAL HISTORY : None. ENCOUNTER: Subsequent ACUITY: 2 days PAIN SCORE: Non-responsive. LOCATION: Left tibia. FINDINGS: 4 spot fluoroscopic images obtained in the operating room during a procedure demonstrate placement of an antegrade intramedullary cinthya within the tibia with 2 proximal and 2 distal interlocking screws. T he hardware traverses the fracture site with improved anatomic alignment. Left proximal fibular fract ure is partially visualized. CONCLUSION: Improved anatomic alignment following left tibia ORIF. Ozzie Manzo MD on December 26, 2016 at 13:21 Board Certified Radiologist. This report was verified electronically.
--- NOTE | 2016-12-26 13:27 | PD.OP ---
cc: Willie Marquis MD Operative Report Date of Surgery: December 26, 2016 Preoperative Diagnosis: (1) Fracture of left tibia and fibula Postoperative Diagnosis: (1) Fracture of left tibia and fibula Procedure: Closed reduction with intramedullary cinthya fixation left tibia Implants: [employer] Surgeon: Willie Marquis [employer] Customer Service(s): Dara Joseph PA-C ([place]) The surgical procedure was assisted by my physician's assistant vice president. Her presence was necessary throughout the case for manipulation and positioning of the surgical extremity. My PA was assisting me throughout the duration of this procedure. The skill set of the physician assistant vice president was medically necessary to complete this procedure. During the surgical case the surgical instrument mechanic was working at the back table and the physician assistant vice president was directly assisting me. Operation and Findings: Indications: This 31-year-old male fell while running sustaining a twisting stress to his left lower extremity. He had immediate pain and inability to ambulate. He presented to [facility]. X-rays revealed a displaced fracture of the distal tibia with an associated proximal fibula fracture. After a long discussion with regards to operative versus nonoperative management and the options for each, patient presents for intramedullary cinthya fixation. Procedure and findings: The patient was taken to the operative suite and after undergoing an adequate level of general anesthesia was kept supine on the operating table. Preoperative antibiotics consisted of Ancef 2 g IV.he left lower extremity was prepped and draped in usual sterile fashion with alcohol and Hibiclens. Incision was made approximately 3 cm proximal to the superior pole of the patella. This was carried down through skin and subcutaneous tense tissue with a knife. Quadricep tendon was identified and a longitudinal split placed. The joint capsule was opened. A blunt trocar was placed through the knee to the tibial plateau. Threaded guidepin was advanced. The position was checked in both the AP and lateral planes with the C-arm. It was subsequently overdrilled. A ball-tipped guide pin was advanced down the shaft of the tibia across the fracture site and seated in the subchondral bone at the ankle. A measurement was then made. The tourniquet was released and sequential reaming up to a size 12 was completed. The size 11 x 35 tibial nail was then impacted into place. This gave a nice reduction. A freehand technique was utilized distally for interlocking fixation. 2 percutaneous holes were made. Drill holes were made and the appropriate length screws placed. An outrigger device was used proximally 4 to interlocking screw placements. The position of the fracture reduction and placement of the internal fixation were checked in both the AP and lateral planes with the C-arm. The wounds were then thoroughly irrigated. The knee joint was thoroughly lavaged. Incision was then closed in layers utilizing 0 Vicryl suture on the quadricep tendon and deep tissue, 2-0 Vicryl suture in subcutaneous tense tissue and esvin on the skin. Sterile dressings were applied, the patient was placed into a splint, awakened, transferred to the hospital bed and taken to the recovery room in stable condition. Estimated blood loss: 100 cc Complications: None Tourniquet time: 12 minutes Willie Marquis MD December 26, 2016 13:27
[2016-12-26] MEDS ORDERED: ZOLPIDEM TARTRATE 5 MG TAB PO PRN (13:30)
[2016-12-26] MEDS ORDERED: oxyCODONE/ACETAMINOPHEN 5 MG/325 MG TAB PO PRN (13:30)
[2016-12-26] MEDS ORDERED: MISCELLANEOUS PHARMACY INFORMATION XX ONE (13:30)
[2016-12-26] MEDS ORDERED: NALOXONE HCL 0.4 MG/ML AMP IV PRN (13:30)
[2016-12-26] MEDS ORDERED: MISCELLANEOUS NURSING INFORMATION XX PRN (13:30)
[2016-12-26] MEDS ORDERED: diphenhydrAMINE HCL 25 MG CAP PO PRN (13:30)
[2016-12-26] MEDS ORDERED: MORPHINE SULFATE 8 MG/ML INJ IV PUSH PRN (13:30)
[2016-12-26] MEDS ORDERED: Post-op Orders (for Pharmacy) MISC XX ONE (13:30)
[2016-12-26] MEDS ORDERED: POVIDONE IODINE 10% SOLN 118 ML BOTTLE TOPICAL PRN (13:30)
[2016-12-26] MEDS ORDERED: ACETAMINOPHEN 325 MG TAB PO PRN (13:30)
[2016-12-26] MEDS ORDERED: SODIUM CHLORIDE 0.9% FLUSH 10 ML FLUSH IV FLUSH PRN (13:30)
[2016-12-26] MEDS ORDERED: DO NOT ADM ANY ANTICOAGULANT DRUGS PRN (13:31)
[2016-12-26] MEDS ORDERED: *morphine SULFATE 8 MG/ML PERIprocedure ONLY ONE (14:15)
[2016-12-26] MEDS: DEXT 5%-NACL 0.45% 1000 ML INJ 1,000 ML IV SCH ×2 (14:30→23:27)
[2016-12-26] MEDS: MORPHINE SULFATE 30 MG/30 ML PCA IV SCH (14:39)
[2016-12-26] MEDS: ceFAZolin 2 GM PREMIX 50 ML IV SCH (15:50)
[2016-12-26] MEDS: oxyCODONE/ACETAMINOPHEN 5 MG/325 MG TAB PO PRN ×2 (15:51→23:17)
[2016-12-26] MEDS: PCA - TOTAL MG MORPHINE DELIVERED PER SHIFT SCH (22:00)
[2016-12-27] MEDS: ceFAZolin 2 GM PREMIX 50 ML IV SCH ×3 (00:19→15:59)
[2016-12-27] MEDS: MORPHINE SULFATE 30 MG/30 ML PCA IV SCH ×3 (01:23→22:59)
[2016-12-27] MEDS: RIVAROXABAN 10 MG TAB PO SCH (01:46)
[2016-12-27] MEDS: SODIUM CHLOR 0.9% 1000 ML INJ 1,000 ML IV SCH ×3 (02:00→22:00)
[2016-12-27 04:36] VITALS: BP 127/77; PULSE 97; RESP 18; TEMP 97.7; O2SAT 98
[2016-12-27] MEDS: oxyCODONE/ACETAMINOPHEN 5 MG/325 MG TAB PO PRN ×3 (05:37→17:50)
[2016-12-27] MEDS: PCA - TOTAL MG MORPHINE DELIVERED PER SHIFT SCH ×3 (06:00→22:00)
[2016-12-27 06:16] LABS: HEMATOCRIT 35.2 % (39.0-51.0); REVIEW FLAG FINAL
--- NOTE | 2016-12-27 07:26 | PD.ORT.PN ---
Subjective Post Op Day #: 1 Subjective Remarks Pt asleep but arousable. Admits left leg pain is well controlled. Using ice. Splint on. Accompanied by family. No new complaints. Objective Vitals Vital Signs Date Time Temp Pulse Resp B/P Pulse Ox O2 Delivery O2 Flow Rate FiO2 12/27/16 04:36 97.7 97 18 127/77 98 12/27/16 01:23 16 12/26/16 23:51 97.7 89 19 126/74 97 12/26/16 22:00 16 12/26/16 21:21 97 Nasal Cannula 2.00 12/26/16 19:16 96.7 92 20 118/76 98 12/26/16 15:57 96.2 84 18 133/79 98 12/26/16 15:52 96 Nasal Cannula 2.00 12/26/16 14:39 16 12/26/16 14:30 88 16 142/83 98 Nasal Cannula 2 12/26/16 14:15 74 16 141/84 97 Nasal Cannula 2 12/26/16 14:00 90 16 139/84 97 Nasal Cannula 2 12/26/16 13:45 88 16 136/76 96 Nasal Cannula 2 12/26/16 13:30 97.7 92 16 127/85 96 Nasal Cannula 2 12/26/16 11:33 95.9 86 18 136/89 97 12/26/16 07:38 97.0 74 18 136/85 98 I/O 12/26/16 12/26/16 12/26/16 12/27/16 12/27/16 12/27/16 06:59 14:59 22:59 06:59 14:59 22:59 Intake Total 870 ml 100 ml 360 ml 480 ml Output Total 1350 ml 800 ml 1900 ml Balance 870 ml -1250 ml -440 ml -1420 ml Intake Oral 150 ml 0 ml 360 ml 480 ml IV Total 720 ml 100 ml Output Urine Total 1350 ml 800 ml 1900 ml # Voids 1 # Bowel Movements 0 0 0 Result Diagram: 12/27/16 0600 12/26/16 0904 Imaging Last Impressions Tibia/Fibula X-Ray 12/26/16 0000 Signed Impressions: Service Date/Time: Monday, December 26, 2016 12:43 - CONCLUSION: Improved anatomic alignment following left tibia ORIF. Ozzie Manzo MD Femur X-Ray 12/25/16 1700 Signed Impressions: Service Date/Time: Sunday, December 25, 2016 17:59 - CONCLUSION: 1. Acute displaced fracture involving the left proximal fibula. Devonte Ayala MD Chest X-Ray 12/25/16 1657 Signed Impressions: Service Date/Time: Sunday, December 25, 2016 18:22 - CONCLUSION: 1. Poor inspiratory result resulting in crowding of the pulmonary vasculature. 2. Mild scoliosis of the thoracolumbar spine. Devonte Ayala MD Knee X-Ray 12/25/16 0000 Signed Impressions: Service Date/Time: Sunday, December 25, 2016 17:23 - CONCLUSION: Acute displaced fracture involving the left proximal fibula. Devonte Ayala MD Procedures Closed reduction with intramedullary cinthya fixation left tibia (12/26/16) Objective Remarks The splint and dressings are dry and are intact. He moves his toes freely and has good capillary refill and sensation. Assessment & Plan Ortho Post Op Day #: 1 Problem List: (1) Fracture of left tibia and fibula (2) Tobacco abuse (3) Alcohol intoxication Assessment and Plan Ortho status stable POD #1 Closed reduction with intramedullary cinthya fixation left tibia Progress rehab - toe touch, gait training with walker Dressing changes POD #2 Xarelto for DVT prophylaxis. Continue pain control. Discharge planning. Dara Joseph December 27, 2016 07:26
[2016-12-27 08:00] VITALS: BP 126/68; PULSE 100; RESP 20; TEMP 96.9; O2SAT 98
[2016-12-27] MEDS: INSULIN ASPART SUPPLEMENTAL SCALE SQ SCH ×4 (08:02→21:00)
[2016-12-27 08:25] LABS: HEMOGLOBIN A1a 1.2 %; HEMOGLOBIN A1b 0.8 %; HEMOGLOBIN Ao 80.3 %; HEMOGLOBIN F 1.5 %; HEMOGLOBIN LA1C 2.1 %; HEMOGLOBIN P3 4.2 %
[2016-12-27] MEDS: DOCUSATE SODIUM 50 MG/SENNA 8.6 MG TAB PO SCH ×2 (08:56→20:30)
[2016-12-27] MEDS: MULTIVITAMINS/MINERALS THERAPEUTIC TAB PO SCH (08:56)
[2016-12-27] MEDS: MAGNESIUM HYDROXIDE SUSP 30 ML CUP PO PRN (08:56)
[2016-12-27] MEDS: SODIUM CHLORIDE 0.9% FLUSH 10 ML FLUSH IV FLUSH SCH ×2 (08:57→20:30)
[2016-12-27] MEDS: DEXT 5%-NACL 0.45% 1000 ML INJ 1,000 ML IV SCH ×2 (08:57→23:02)
--- NOTE | 2016-12-27 10:58 | HHI.PR ---
Subjective Remarks Follow-up left tibial fracture 12/26/16-patient seen and examined and is currently nothing by mouth. Denies any significant left knee pain. 12/27/16-patient seen and examined, he is status post Closed reduction with intramedullary cinthya fixation left tibia. Pain currently controlled and patient is afebrile. Objective Vitals Vital Signs Date Time Temp Pulse Resp B/P Pulse Ox O2 Delivery O2 Flow Rate FiO2 12/27/16 08:00 96.9 100 20 126/68 98 12/27/16 06:00 16 12/27/16 04:36 97.7 97 18 127/77 98 12/27/16 01:23 16 12/26/16 23:51 97.7 89 19 126/74 97 12/26/16 22:00 16 12/26/16 21:21 97 Nasal Cannula 2.00 12/26/16 19:16 96.7 92 20 118/76 98 12/26/16 15:57 96.2 84 18 133/79 98 12/26/16 15:52 96 Nasal Cannula 2.00 12/26/16 14:39 16 12/26/16 14:30 88 16 142/83 98 Nasal Cannula 2 12/26/16 14:15 74 16 141/84 97 Nasal Cannula 2 12/26/16 14:00 90 16 139/84 97 Nasal Cannula 2 12/26/16 13:45 88 16 136/76 96 Nasal Cannula 2 12/26/16 13:30 97.7 92 16 127/85 96 Nasal Cannula 2 12/26/16 11:33 95.9 86 18 136/89 97 I/O 12/26/16 12/26/16 12/26/16 12/27/16 12/27/16 12/27/16 07:00 15:00 23:00 07:00 15:00 23:00 Intake Total 870 ml 100 ml 360 ml 480 ml Output Total 1350 ml 800 ml 1900 ml Balance 870 ml -1250 ml -440 ml -1420 ml Intake Oral 150 ml 0 ml 360 ml 480 ml IV Total 720 ml 100 ml Output Urine Total 1350 ml 800 ml 1900 ml # Voids 1 # Bowel Movements 0 0 0 Result Diagram: 12/27/16 0600 12/26/16 0904 Objective Remarks GENERAL: NAD SKIN: Warm and dry. HEAD: Normocephalic. EYES: No scleral icterus. No injection or drainage. NECK: Supple, trachea midline. No JVD or lymphadenopathy. CARDIOVASCULAR: Regular rate and rhythm without murmurs, gallops, or rubs. RESPIRATORY: Breath sounds equal bilaterally. No accessory muscle use. GASTROINTESTINAL: Abdomen soft, non-tender, nondistended. MUSCULOSKELETAL: No cyanosis, or edema. Left knee repair, neurovascular intact BACK: Nontender without obvious deformity. No CVA tenderness. Procedures Closed reduction with intramedullary cinthya fixation left tibia 12/26/16 A/P Problem List: (1) Fracture of left tibia and fibula ICD Code: S82.A Status: Acute (2) Alcohol intoxication ICD Code: F10.929 Status: Resolved (3) Hypokalemia ICD Code: E87.6 Status: Resolved (4) Hyperglycemia ICD Code: R73.9 Status: Acute (5) Dehydration ICD Code: E86.0 Status: Resolved (6) Tobacco abuse ICD Code: Z72.0 Status: Chronic (7) Newly diagnosed diabetes ICD Code: E11.9 Status: Acute (8) Transaminitis ICD Code: R74.0 Status: Acute Assessment and Plan 31-year-old man with 1. Left Tib-Fib Fx: s/p mechanical trip and fall . Tib-fib X-ray with acute displaced fractures involving left distal tibial shaft and left proximal fibular shaft.s/p Closed reduction with intramedullary cinthya fixation left tibia 12/26/16, management per orthopedic surgery. Continue parenteral pain medication,[employer], analgesics/antiemetics as needed. 2. Alcohol Intoxication: Acute intoxication. Alcohol 239. No h/o alcohol abuse. 3. Hypokalemia: Resolved status post replacement 4. Newly diagnosed diabetes type 2: Hemoglobin A1c 9.5 therefore will start metformin 500 mg twice a day and consults entry level recruiter nurse. Check hemoglobin A1c in 3 months. Continue with, Sliding scale w/ Accu-Cheks. 5. Tobacco Abuse: Pt counselled. NicoDerm prn if needed. 6. DVT Prophylaxis: Anticoagulation post op per Ortho. 7. Transaminitis: Elevated LFTs Likely secondary to alcohol abuse however will check hepatitis profile and treat accordingly. Monitor LFTs Problem Qualifiers (1) Fracture of left tibia and fibula: Qualified Code: S82.A - Fracture of left tibia and fibula, closed, initial encounter Pontey,Efraín MD December 27, 2016 10:58
[2016-12-27 11:42] VITALS: O2SAT 98
[2016-12-27 11:54] VITALS: BP 134/73; PULSE 85; RESP 16; TEMP 97.5; O2SAT 99
[2016-12-27] MEDS ORDERED: GETGO ROLLING W1 MI1 (13:54)
[2016-12-27 16:00] VITALS: BP 131/72; PULSE 104; RESP 16; TEMP 96.8; O2SAT 95
[2016-12-27] MEDS: metFORMIN HCL 500 MG TAB PO SCH (17:45)
[2016-12-27 20:30] VITALS: BP 120/76; PULSE 105; RESP 16; TEMP 98.2; O2SAT 96
[2016-12-28] MEDS: ceFAZolin 2 GM PREMIX 50 ML IV SCH ×3 (00:13→17:13)
[2016-12-28] MEDS: oxyCODONE/ACETAMINOPHEN 5 MG/325 MG TAB PO PRN ×4 (00:15→20:12)
[2016-12-28 00:35] VITALS: BP 121/62; PULSE 96; RESP 16; TEMP 99.1; O2SAT 97
[2016-12-28] MEDS: RIVAROXABAN 10 MG TAB PO SCH (02:42)
[2016-12-28 04:25] VITALS: BP_SYST 130; BP_SYST 133; BP_DIAS 66; BP_DIAS 68; PULSE 106; PULSE 76; RESP 16; TEMP 100.1; TEMP 99.3; O2SAT 95
[2016-12-28] MEDS: DEXT 5%-NACL 0.45% 1000 ML INJ 1,000 ML IV SCH ×2 (05:27→15:27)
[2016-12-28] MEDS: PCA - TOTAL MG MORPHINE DELIVERED PER SHIFT SCH ×3 (06:00→20:14)
[2016-12-28] MEDS: INSULIN ASPART SUPPLEMENTAL SCALE SQ SCH ×4 (06:15→21:33)
[2016-12-28 07:28] LABS: INDIRECT BILIRUBIN 0.5 MG/DL (0.0-0.8); TOTAL BILIRUBIN ADULT 0.7 MG/DL (0.2-1.0)
--- NOTE | 2016-12-28 07:49 | PD.ORT.PN ---
Subjective Post Op Day #: 2 Subjective Remarks Pt awake and alert. Admits left leg pain is well controlled. Splint on. He expresses interest in walking more before d/c. Accompanied by family. No new complaints. Objective Vitals Vital Signs Date Time Temp Pulse Resp B/P Pulse Ox O2 Delivery O2 Flow Rate FiO2 12/28/16 06:00 16 12/28/16 04:25 100.1 106 16 130/66 95 12/28/16 00:35 99.1 96 16 121/62 97 12/27/16 23:04 16 12/27/16 22:59 16 12/27/16 22:00 18 12/27/16 20:30 98.2 105 16 120/76 96 12/27/16 18:09 21 12/27/16 16:00 96.8 104 16 131/72 95 12/27/16 14:52 18 12/27/16 14:14 18 12/27/16 11:54 97.5 85 16 134/73 99 12/27/16 11:42 98 12/27/16 08:00 96.9 100 20 126/68 98 I/O 12/27/16 12/27/16 12/27/16 12/28/16 12/28/16 12/28/16 07:00 15:00 23:00 07:00 15:00 23:00 Intake Total 480 ml 1954 ml 1327 ml 939 ml Output Total 1900 ml 675 ml 1000 ml 700 ml Balance -1420 ml 1279 ml 327 ml 239 ml Intake Oral 480 ml 480 ml 480 ml 240 ml IV Total 1474 ml 847 ml 699 ml Output Urine Total 1900 ml 675 ml 1000 ml 700 ml # Bowel Movements 0 0 0 0 Result Diagram: 12/27/16 0600 12/26/16 0904 Imaging Last Impressions Tibia/Fibula X-Ray 12/26/16 0000 Signed Impressions: Service Date/Time: Monday, December 26, 2016 12:43 - CONCLUSION: Improved anatomic alignment following left tibia ORIF. Ozzie Manzo MD Femur X-Ray 12/25/16 1700 Signed Impressions: Service Date/Time: Sunday, December 25, 2016 17:59 - CONCLUSION: 1. Acute displaced fracture involving the left proximal fibula. Devonte Ayala MD Chest X-Ray 12/25/16 1657 Signed Impressions: Service Date/Time: Sunday, December 25, 2016 18:22 - CONCLUSION: 1. Poor inspiratory result resulting in crowding of the pulmonary vasculature. 2. Mild scoliosis of the thoracolumbar spine. Devonte Ayala MD Knee X-Ray 12/25/16 0000 Signed Impressions: Service Date/Time: Sunday, December 25, 2016 17:23 - CONCLUSION: Acute displaced fracture involving the left proximal fibula. Devonte Ayala MD Procedures Closed reduction with intramedullary cinthya fixation left tibia (12/26/16) Objective Remarks The splint and dressings are dry and are intact. He moves his toes freely and has good capillary refill and sensation. Assessment & Plan Ortho Post Op Day #: 2 Problem List: (1) Fracture of left tibia and fibula (2) Tobacco abuse (3) Alcohol intoxication Assessment and Plan Ortho status stable POD #2 Closed reduction with intramedullary cinthya fixation left tibia Progress rehab - toe touch, gait training with walker Walk with aid before d/c Dressing changes today, place into fracture boot. [employer] requested. Xarelto for DVT prophylaxis, 20 days post op. Continue pain control. D/C pain pump - transition to oral meds. Clear for discharge from an orthopedic standpoint. Dara Joseph December 28, 2016 07:49
[2016-12-28] MEDS ORDERED: XARE10TA PO (07:59)
[2016-12-28 08:00] VITALS: BP 125/75; PULSE 101; RESP 20; TEMP 98.7; O2SAT 95
[2016-12-28] MEDS: SODIUM CHLOR 0.9% 1000 ML INJ 1,000 ML IV SCH ×2 (08:00→17:40)
[2016-12-28] MEDS: SODIUM CHLORIDE 0.9% FLUSH 10 ML FLUSH IV FLUSH SCH ×2 (09:00→20:14)
[2016-12-28] MEDS: MULTIVITAMINS/MINERALS THERAPEUTIC TAB PO SCH (09:19)
[2016-12-28] MEDS: metFORMIN HCL 500 MG TAB PO SCH ×2 (09:19→17:14)
[2016-12-28] MEDS: DOCUSATE SODIUM 50 MG/SENNA 8.6 MG TAB PO SCH ×2 (09:19→20:11)
[2016-12-28] MEDS ORDERED: HYDR-3288 PO (09:42)
[2016-12-28] MEDS ORDERED: PERI8.6T PO (09:42)
[2016-12-28] MEDS ORDERED: METF500 PO (09:42)
--- NOTE | 2016-12-28 09:44 | HHI.PR ---
Subjective Remarks Follow-up left tibial fracture 12/26/16-patient seen and examined and is currently nothing by mouth. Denies any significant left knee pain. 12/27/16-patient seen and examined, he is status post Closed reduction with intramedullary cinthya fixation left tibia. Pain currently controlled and patient is afebrile. 12/28/16-patient seen and examined, pain to left knee control and tolerable. No acute event overnight Objective Vitals Vital Signs Date Time Temp Pulse Resp B/P Pulse Ox O2 Delivery O2 Flow Rate FiO2 12/28/16 08:00 98.7 101 20 125/75 95 12/28/16 06:00 16 12/28/16 04:25 100.1 106 16 130/66 95 12/28/16 00:35 99.1 96 16 121/62 97 12/27/16 23:04 16 12/27/16 22:59 16 12/27/16 22:00 18 12/27/16 20:30 98.2 105 16 120/76 96 12/27/16 18:09 21 12/27/16 16:00 96.8 104 16 131/72 95 12/27/16 14:52 18 12/27/16 14:14 18 12/27/16 11:54 97.5 85 16 134/73 99 12/27/16 11:42 98 I/O 12/27/16 12/27/16 12/27/16 12/28/16 12/28/16 12/28/16 07:00 15:00 23:00 07:00 15:00 23:00 Intake Total 480 ml 1954 ml 1327 ml 939 ml Output Total 1900 ml 675 ml 1000 ml 700 ml Balance -1420 ml 1279 ml 327 ml 239 ml Intake Oral 480 ml 480 ml 480 ml 240 ml IV Total 1474 ml 847 ml 699 ml Output Urine Total 1900 ml 675 ml 1000 ml 700 ml # Bowel Movements 0 0 0 0 Result Diagram: 12/27/16 0600 12/26/16 0904 Objective Remarks GENERAL: NAD SKIN: Warm and dry. HEAD: Normocephalic. EYES: No scleral icterus. No injection or drainage. NECK: Supple, trachea midline. No JVD or lymphadenopathy. CARDIOVASCULAR: Regular rate and rhythm without murmurs, gallops, or rubs. RESPIRATORY: Breath sounds equal bilaterally. No accessory muscle use. GASTROINTESTINAL: Abdomen soft, non-tender, nondistended. MUSCULOSKELETAL: No cyanosis, or edema. Left knee repair, neurovascular intact BACK: Nontender without obvious deformity. No CVA tenderness. Procedures Closed reduction with intramedullary cinthya fixation left tibia 12/26/16 A/P Problem List: (1) Fracture of left tibia and fibula ICD Code: S82.202A Status: Acute (2) Alcohol intoxication ICD Code: F10.929 Status: Resolved (3) Hypokalemia ICD Code: E87.6 Status: Resolved (4) Hyperglycemia ICD Code: R73.9 Status: Acute (5) Dehydration ICD Code: E86.0 Status: Resolved (6) Tobacco abuse ICD Code: Z72.0 Status: Chronic (7) Newly diagnosed diabetes ICD Code: E11.9 Status: Acute (8) Transaminitis ICD Code: R74.0 Status: Acute Assessment and Plan 31-year-old man with 1. Left Tib-Fib Fx: s/p mechanical trip and fall . Tib-fib X-ray with acute displaced fractures involving left distal tibial shaft and left proximal fibular shaft.s/p Closed reduction with intramedullary cinthya fixation left tibia 12/26/16, management per orthopedic surgery. Continue parenteral pain medication,analgesics/antiemetics as needed. 2. Alcohol Intoxication: Acute intoxication. Alcohol 239. No h/o alcohol abuse. 3. Hypokalemia: Resolved status post replacement 4. Newly diagnosed diabetes type 2: Hemoglobin A1c 9.5 ; currently on metformin 500 mg twice a day. Check hemoglobin A1c in 3 months. Continue with, Sliding scale w/ Accu-Cheks. 5. Tobacco Abuse: Pt counselled. NicoDerm prn if needed. 6. DVT Prophylaxis: Anticoagulation post op per Ortho. 7. Transaminitis: Elevated LFTs Likely secondary to alcohol abuse however hepatitis profile pending and treat accordingly. Monitor LFTs Problem Qualifiers (1) Fracture of left tibia and fibula: Qualified Code: S82.202A - Fracture of left tibia and fibula, closed, initial encounter Efraín Moreno MD December 28, 2016 09:44
--- NOTE | 2016-12-28 09:45 | HHI.DS ---
Discharge Summary Admission Date December 25, 2016 at 20:06 Discharge Date: December 28, 2016 Admitting Diagnosis left tibia fibular fracture, alcohol intoxication (1) Fracture of left tibia and fibula ICD Code: S82.202A (2) Alcohol intoxication ICD Code: F10.929 (3) Hypokalemia ICD Code: E87.6 (4) Hyperglycemia ICD Code: R73.9 (5) Dehydration ICD Code: E86.0 (6) Tobacco abuse ICD Code: Z72.0 (7) Newly diagnosed diabetes ICD Code: E11.9 (8) Transaminitis ICD Code: R74.0 Procedures Closed reduction with intramedullary cinthya fixation left tibia 12/26/16 Brief History - From Admission This is a 31-year-old male with no significant PMH who was brought to the ER by with injury to left leg after fall. Patient was apparently running and suddenly tripped over a tree stump, landed on left leg with immediate pain. Unable to bare weight. Upon EMS arrival, patient noted to have obvious deformity of left lower extremity, s/p splint. No LOC or head trauma reported. On arrival, BP 143/94, HR 119, O2 sat 96% on RA, Afebrile. CBC unremarkable. K+ 3.4. GFR 84. BS 233. INR 1.1. CXR with no acute findings, poor inspiratory effort. Knee X-ray acute displaced fracture involving left proximal fibula. Tib-Fib X-ray acute displaced fractures involving left distal tibial shaft and left proximal fibular shaft. Femur X-ray acute displaced fracture involving left proximal fibula. Dr. Marquis consulted by ER physician, plan is for surgical intervention by Dr. Castillo in a.m. CBC/BMP: 12/27/16 0600 12/26/16 0904 Significant Findings Laboratory Tests Test 12/25/16 12/26/16 12/26/16 12/27/16 17:15 09:04 11:00 06:00 Prothrombin Time 11.7 SEC (9.8-11.6) Potassium Level 3.4 MEQ/L (3.5-5.1) Estimat Glomerular Filtration 84 ML/MIN (>89) Rate Random Glucose 233 MG/DL 137 MG/DL (74-106) (74-106) Ethyl Alcohol Level 239 MG/DL (0-5) Red Blood Count 4.10 MIL/MM3 (4.50-5.90) Hemoglobin 12.7 GM/DL 12.2 GM/DL (13.0-17.0) (13.0-17.0) Hematocrit 38.3 % 35.2 % (39.0-51.0) (39.0-51.0) Monocytes (%) (Auto) 12.8 % (0.0-8.0) Hemoglobin A1c 9.5 % (4.3-6.0) Aspartate Amino Transf 125 U/L (15-37) (AST/SGOT) Alanine Aminotransferase 224 U/L (12-78) (ALT/SGPT) Urine Glucose (UA) 70 mg/dL (NEG) Urine Mucus FEW /lpf (OCC) Test 12/28/16 06:12 Aspartate Amino Transf 53 U/L (15-37) (AST/SGOT) Alanine Aminotransferase 106 U/L (12-78) (ALT/SGPT) Albumin 3.3 GM/DL (3.4-5.0) Imaging Last Impressions Tibia/Fibula X-Ray 12/26/16 0000 Signed Impressions: Service Date/Time: Monday, December 26, 2016 12:43 - CONCLUSION: Improved anatomic alignment following left tibia ORIF. Ozzie Manzo MD Femur X-Ray 12/25/16 1700 Signed Impressions: Service Date/Time: Sunday, December 25, 2016 17:59 - CONCLUSION: 1. Acute displaced fracture involving the left proximal fibula. Devonte Ayala MD Chest X-Ray 12/25/16 1657 Signed Impressions: Service Date/Time: Sunday, December 25, 2016 18:22 - CONCLUSION: 1. Poor inspiratory result resulting in crowding of the pulmonary vasculature. 2. Mild scoliosis of the thoracolumbar spine. Devonte Ayala MD Knee X-Ray 12/25/16 0000 Signed Impressions: Service Date/Time: Sunday, December 25, 2016 17:23 - CONCLUSION: Acute displaced fracture involving the left proximal fibula. Devonte Ayala MD PE at Discharge GENERAL: NAD SKIN: Warm and dry. HEAD: Normocephalic. EYES: No scleral icterus. No injection or drainage. NECK: Supple, trachea midline. No JVD or lymphadenopathy. CARDIOVASCULAR: Regular rate and rhythm without murmurs, gallops, or rubs. RESPIRATORY: Breath sounds equal bilaterally. No accessory muscle use. GASTROINTESTINAL: Abdomen soft, non-tender, nondistended. MUSCULOSKELETAL: No cyanosis, or edema. Left knee repair, neurovascular intact BACK: Nontender without obvious deformity. No CVA tenderness. Hospital Course 1. Left Tib-Fib Fx: s/p mechanical trip and fall . Tib-fib X-ray with acute displaced fractures involving left distal tibial shaft and left proximal fibular shaft.s/p Closed reduction with intramedullary cinthya fixation left tibia 12/26/16, management per orthopedic surgery. Continue parenteral pain medication,analgesics/antiemetics as needed. 2. Alcohol Intoxication: Acute intoxication. Alcohol 239. No h/o alcohol abuse. 3. Hypokalemia: Resolved status post replacement 4. Newly diagnosed diabetes type 2: Hemoglobin A1c 9.5 ; currently on metformin 500 mg twice a day. Check hemoglobin A1c in 3 months. Continue with, Sliding scale w/ Accu-Cheks. 5. Tobacco Abuse: Pt counselled. NicoDerm prn if needed. 6. DVT Prophylaxis: Anticoagulation post op per Ortho. 7. Transaminitis: Elevated LFTs Likely secondary to alcohol abuse however hepatitis profile pending and treat accordingly. Monitor LFTs Pt Condition on Discharge: Stable Discharge Disposition: Discharge Home Discharge Time: > 30 minutes Discharge Instructions DIET: Follow Instructions for: Diabetic Diet Activities you can perform: Toe Touch Weight Bearing Activities to Avoid: Lifting/Bending Follow up Referrals: Orthopedics - 1 Week @ [facility] with Willie Marquis MD PCP Follow-up - 1 Week New Medications: Hydrocodone-Acetaminophen ([place]) 7.5-325 mg Tab 2 TAB PO Q6H PRN PAIN #40 Ref 0 TAB Sennosides-Docusate Sodium (Cindy-Colace) 8.6-50 Mg Tab 1 TAB PO BID PRN Constipation #20 Ref 0 TAB Walker Rolling/GetGo (Walker Rolling/GetGo) 1 Mis Mis 1 EA .ROUTE DIRECTED #1 EA Metformin (Glucophage) 500 Mg Tab 500 MG PO BIDPC Blood Sugar Management #60 Ref 3 TAB Rivaroxaban (Xarelto) 10 Mg Tab 10 MG PO Q24H Prevent Blood Clot #20 TAB Discontinued Medications: Amoxicillin & Pot Clavulanate 875 mg Tab (Augmentin 875 mg Tab) 875 Mg Tab 875 MG PO Q12 Days 10 Naproxen (Naproxen) 500 Mg Tab 500 MG PO Q12HR PRN PAIN #20 TAB Additional Information I Spent over 30 minutes discussing patient prognosis, education and therapy as well as his newly diagnosed diabetes is concerned Efraín oMreno MD December 28, 2016 09:45
[2016-12-28 12:00] VITALS: BP 122/77; PULSE 91; RESP 17; TEMP 96.5; O2SAT 96
[2016-12-28 16:00] VITALS: BP 117/80; PULSE 91; RESP 18; TEMP 97.9; O2SAT 98
[2016-12-28 20:45] VITALS: BP 142/81; PULSE 98; RESP 17; TEMP 98.4; O2SAT 96
[2016-12-28] MEDS: MAGNESIUM HYDROXIDE SUSP 30 ML CUP PO PRN (21:28)
[2016-12-29] MEDS: ceFAZolin 2 GM PREMIX 50 ML IV SCH ×2 (00:21→08:57)
[2016-12-29 00:30] VITALS: BP 122/77; PULSE 111; RESP 17; TEMP 98.4; O2SAT 96
[2016-12-29] MEDS: DEXT 5%-NACL 0.45% 1000 ML INJ 1,000 ML IV SCH (01:27)
[2016-12-29] MEDS: RIVAROXABAN 10 MG TAB PO SCH (01:57)
[2016-12-29] MEDS: oxyCODONE/ACETAMINOPHEN 5 MG/325 MG TAB PO PRN ×3 (01:58→15:41)
[2016-12-29] MEDS: SODIUM CHLOR 0.9% 1000 ML INJ 1,000 ML IV SCH (02:00)
[2016-12-29] MEDS: INSULIN ASPART SUPPLEMENTAL SCALE SQ SCH ×2 (05:43→12:25)
[2016-12-29] MEDS: PCA - TOTAL MG MORPHINE DELIVERED PER SHIFT SCH (05:44)
[2016-12-29 07:56] VITALS: BP 117/64; PULSE 94; RESP 18; TEMP 97; O2SAT 97
[2016-12-29] MEDS: metFORMIN HCL 500 MG TAB PO SCH (08:58)
[2016-12-29] MEDS: MULTIVITAMINS/MINERALS THERAPEUTIC TAB PO SCH (08:58)
[2016-12-29] MEDS: DOCUSATE SODIUM 50 MG/SENNA 8.6 MG TAB PO SCH (08:58)
[2016-12-29] MEDS: SODIUM CHLORIDE 0.9% FLUSH 10 ML FLUSH IV FLUSH SCH (08:58)
--- NOTE | 2016-12-29 09:54 | PD.ORT.PN ---
Subjective Post Op Day #: 3 Subjective Remarks Pt awake and alert. Admits left leg pain is well controlled with oral meds. Fracture boot and CKS on. Walked with PT. Accompanied by family. No new complaints. Objective Vitals Vital Signs Date Time Temp Pulse Resp B/P Pulse Ox O2 Delivery O2 Flow Rate FiO2 12/29/16 07:56 97.0 94 18 117/64 97 12/29/16 00:30 98.4 111 17 122/77 96 12/28/16 20:45 98.4 98 17 142/81 96 12/28/16 16:00 97.9 91 18 117/80 98 12/28/16 14:19 18 12/28/16 12:00 96.5 91 17 122/77 96 I/O 12/28/16 12/28/16 12/28/16 12/29/16 12/29/16 12/29/16 06:59 14:59 22:59 06:59 14:59 22:59 Intake Total 939 ml 1920 ml 480 ml Output Total 700 ml 3450 ml Balance 239 ml -1530 ml 480 ml Intake Oral 240 ml 1920 ml 480 ml IV Total 699 ml Output Urine Total 700 ml 3450 ml # Voids 3 2 # Bowel Movements 0 0 1 Result Diagram: 12/27/16 0600 12/26/16 0904 Imaging Last Impressions Tibia/Fibula X-Ray 12/26/16 0000 Signed Impressions: Service Date/Time: Monday, December 26, 2016 12:43 - CONCLUSION: Improved anatomic alignment following left tibia ORIF. Ozzie Manzo MD Femur X-Ray 12/25/16 1700 Signed Impressions: Service Date/Time: Sunday, December 25, 2016 17:59 - CONCLUSION: 1. Acute displaced fracture involving the left proximal fibula. Devonte Ayala MD Chest X-Ray 12/25/16 1657 Signed Impressions: Service Date/Time: Sunday, December 25, 2016 18:22 - CONCLUSION: 1. Poor inspiratory result resulting in crowding of the pulmonary vasculature. 2. Mild scoliosis of the thoracolumbar spine. Devonte Ayala MD Knee X-Ray 12/25/16 0000 Signed Impressions: Service Date/Time: Sunday, December 25, 2016 17:23 - CONCLUSION: Acute displaced fracture involving the left proximal fibula. Devonte Ayala MD Procedures Closed reduction with intramedullary cinthya fixation left tibia (12/26/16) Objective Remarks The boot/CKS and dressings are dry and are intact. He moves his toes freely and has good capillary refill and sensation. Assessment & Plan Ortho Post Op Day #: 3 Problem List: (1) Fracture of left tibia and fibula (2) Tobacco abuse (3) Alcohol intoxication Assessment and Plan Ortho status stable POD #3 Closed reduction with intramedullary cinthya fixation left tibia Progress rehab - strict toe touch, gait training with walker Walk with aid before d/c Dressing changes today, stay in fracture boot. Would like a fracture boot that goes up higher - RN notified. CKS only for comfort - ok to come out for ambulation. Xarelto for DVT prophylaxis, 20 days post op. Continue pain control. D/C pain pump - transition to oral meds. Clear for discharge from an orthopedic standpoint. Dara Joseph Dec 29, 2016 09:54
--- NOTE | 2016-12-29 11:04 | HHI.PR ---
Subjective Remarks patient 's pain controlled motivated with physical therapy- some questions about DMEs Objective Vitals Vital Signs Date Time Temp Pulse Resp B/P Pulse Ox O2 Delivery O2 Flow Rate FiO2 12/29/16 07:56 97.0 94 18 117/64 97 12/29/16 00:30 98.4 111 17 122/77 96 12/28/16 20:45 98.4 98 17 142/81 96 12/28/16 16:00 97.9 91 18 117/80 98 12/28/16 14:19 18 12/28/16 12:00 96.5 91 17 122/77 96 I/O 12/28/16 12/28/16 12/28/16 12/29/16 12/29/16 12/29/16 07:00 15:00 23:00 07:00 15:00 23:00 Intake Total 939 ml 1440 ml 480 ml 480 ml Output Total 700 ml 1750 ml 1700 ml Balance 239 ml -310 ml -1220 ml 480 ml Intake Oral 240 ml 1440 ml 480 ml 480 ml IV Total 699 ml Output Urine Total 700 ml 1750 ml 1700 ml # Voids 3 2 # Bowel Movements 0 0 1 Result Diagram: 12/27/16 0600 12/26/16 0904 Imaging Last Impressions Tibia/Fibula X-Ray 12/26/16 0000 Signed Impressions: Service Date/Time: Monday, December 26, 2016 12:43 - CONCLUSION: Improved anatomic alignment following left tibia ORIF. Ozzie Manzo MD Femur X-Ray 12/25/16 1700 Signed Impressions: Service Date/Time: Sunday, December 25, 2016 17:59 - CONCLUSION: 1. Acute displaced fracture involving the left proximal fibula. Devonte Ayala MD Chest X-Ray 12/25/16 1657 Signed Impressions: Service Date/Time: Sunday, December 25, 2016 18:22 - CONCLUSION: 1. Poor inspiratory result resulting in crowding of the pulmonary vasculature. 2. Mild scoliosis of the thoracolumbar spine. Devonte Ayala MD Knee X-Ray 12/25/16 0000 Signed Impressions: Service Date/Time: Sunday, December 25, 2016 17:23 - CONCLUSION: Acute displaced fracture involving the left proximal fibula. Devonte Ayala MD Objective Remarks awake and alert, NAD anicteric lungs clear regular rhythm abdomen soft, nontender extremities - LE- with CKS in place Procedures Closed reduction with intramedullary cinthya fixation left tibia 12/26/16 A/P Problem List: (1) Fracture of left tibia and fibula ICD Code: S82.A Status: Acute (2) Alcohol intoxication ICD Code: F10.929 Status: Resolved (3) Hypokalemia ICD Code: E87.6 Status: Resolved (4) Hyperglycemia ICD Code: R73.9 Status: Acute (5) Dehydration ICD Code: E86.0 Status: Resolved (6) Tobacco abuse ICD Code: Z72.0 Status: Chronic (7) Newly diagnosed diabetes ICD Code: E11.9 Status: Acute (8) Transaminitis ICD Code: R74.0 Status: Acute Assessment and Plan 31-year-old man with 1. Left Tib-Fib Fx: s/p mechanical trip and fall . Tib-fib X-ray with acute displaced fractures involving left distal tibial shaft and left proximal fibular shaft.s/p Closed reduction with intramedullary cinthya fixation left tibia 12/26/16, DC today with po pain meds and Xarelto 2. Alcohol Intoxication: Acute intoxication. Alcohol 239. patient counselled extensively with at bedside 3. Hypokalemia: Resolved status post replacement 4. Newly diagnosed diabetes type 2: Hemoglobin A1c 9.5 ; currently on metformin 500 mg twice a day. Check hemoglobin A1c in 3 months. Continue with, Sliding scale w/ Accu-Cheks. PCP OP referral. diabetes teaching- nutrition counselling 5. Tobacco Abuse: Pt counselled. 6. DVT Prophylaxis: Anticoagulation - Xarelto for 20 days post op per Ortho. 7. Transaminitis: Elevated LFTs Likely secondary to alcohol abuse, Hepatitis serology negative. Monitor LFTs as OP DC today. CM assisting us. d/w staff nurse- damaso to do bedside diabetes education d/w patient and at length at bedside- bedside diabetes teaching done- went over goals, d/w complications of uncontrolled diabetes. hypogycemic symptoms reinforced diet , alcohol cessation Problem Qualifiers (1) Fracture of left tibia and fibula: Qualified Code: S82.A - Fracture of left tibia and fibula, closed, initial encounter Neha Rosales MD Dec 29, 2016 11:04
[2016-12-29] MEDS ORDERED: BLOOD GLUCOSE M1 KIT (11:15)
[2016-12-29 11:55] VITALS: BP 120/73; PULSE 86; RESP 18; TEMP 97.9; O2SAT 93
== END 2016-12-29 17:35 | disposition home or self-care (01) | DRG 494 ==
LOC: NEPE 16:48 → NEDA 19:56 → OBSVTOIN 20:06 → N06A 20:47
PROVIDERS: ADMIT Internal Medicine; ATTEND Internal Medicine
PROC: 0QSH36Z Reposition Left Tibia with Intramedullary Internal Fixation Device, Percutaneous Approach (ICD-10-PCS; principal; 2016-12-25)
DX: S82.302A Unspecified fracture of lower end of left tibia, initial encounter for closed fracture (principal); E11.65 Type 2 diabetes mellitus with hyperglycemia; S82.832A Other fracture of upper and lower end of left fibula, initial encounter for closed fracture; Y92.9 Unspecified place or not applicable; E86.0 Dehydration; E87.6 Hypokalemia; F10.129 Alcohol abuse with intoxication, unspecified; W01.0XXA Fall on same level from slipping, tripping and stumbling without subsequent striking against object, initial encounter; F17.200 Nicotine dependence, unspecified, uncomplicated; Z79.84 Long term (current) use of oral hypoglycemic drugs
CPT/HCPCS: 27752; 71010; 73552; 73560; 73590; 76000; 80048; 80053; 80074; 80076; 80307; 81001; 82948; 83036; 85014; 85018; 85025; 85610; 85730; 86850; 86900; 86901; 94150; 96374; 96375; 99152; C1713; C1769; J0131; J0690; J1170; J1580; J1815; J2250; J2270; J2405; J2710; J3010; J7030; J7120; L1830; L2114